=== PATIENT | female | born 1950 | race Caucasian/White ===

== ENCOUNTER → 2017-05-27 | Outpatient (CLI) | payer OTHER ==
[~2017-05-27] MED LIST: ESTR0.753 PO; HYDR-2443 PO; METO25TA35 PO; OMEP1CAP14 PO; ONDA4TAB13 SL
== END | disposition home or self-care (01) ==
LOC: CFH 07:25
PROVIDERS: ATTEND Internal Medicine
DX: Z12.31 Encounter for screening mammogram for malignant neoplasm of breast (principal); M85.88 Other specified disorders of bone density and structure, other site
CPT/HCPCS: 77080; 77067

== ENCOUNTER → 2018-08-30 | Outpatient (CLI) | payer OTHER | END | disposition home or self-care (01) | LOC: CFH 12:02 | PROVIDERS: ATTEND Internal Medicine | DX: N63.41 Unspecified lump in right breast, subareolar (principal) | CPT/HCPCS: 76641; 77066; G0279 ==

== ENCOUNTER → 2019-02-03 | Outpatient (CLI) | payer OTHER, MEDICARE ==
[~2019-02-03] MED LIST changes: +ASCO10004 PO; +BIOT5TAB PO; +CHOL20002 PO; +MAGN400T36 PO; +OMNIPAQUE 350 MG/ML, 100ML BOTTLE ONE; +TRAZ50TA66 PO; +VITA200C7 PO
== END | disposition home or self-care (01) ==
LOC: CFH 14:26
PROVIDERS: ATTEND Internal Medicine Cardiovascular Disease
DX: I25.10 Atherosclerotic heart disease of native coronary artery without angina pectoris (principal); I70.90 Unspecified atherosclerosis; K44.9 Diaphragmatic hernia without obstruction or gangrene; R07.9 Chest pain, unspecified; F10.20 Alcohol dependence, uncomplicated; Z87.891 Personal history of nicotine dependence
CPT/HCPCS: 75574; Q9967

== ENCOUNTER 2019-02-17 07:22 | Outpatient (CLI) | payer MEDICARE, OTHER ==
[~2019-02-17 07:22] MED LIST changes: -OMNIPAQUE 350 MG/ML, 100ML BOTTLE ONE
[2019-02-17 08:33] LABS: BASOPHILS # (AUTO) 0.02 x10^3/uL (0-0.1); BASOPHILS % (AUTO) 1 % (0-1); EOSINOPHILS # (AUTO) 0.04 x10^3/uL (0-0.4); EOSINOPHILS % (AUTO) 1 % (1-7); LYMPHOCYTES # (AUTO) 1.18 x10^3/uL (1-3.4); LYMPHOCYTES % (AUTO) 32 % (22-44); MD NO; MEAN CORPUSCULAR HEMOGLOBIN 28.1 pg (27.0-34.8); MEAN CORPUSCULAR HGB CONC 32.4 g/dL (32.4-35.8); MEAN CORPUSCULAR VOLUME 86.7 fL (80-100); MONOCYTES # (AUTO) 0.32 x10^3/uL (0.2-0.8); MONOCYTES % (AUTO) 9 % (2-9); NEUTROPHILS # (AUTO) 2.14 x10^3/uL (1.8-6.8); NEUTROPHILS % (AUTO) 58 % (42-75); PLATELET COUNT 216 x10^3/uL (130-400); RED BLOOD COUNT 4.71 x10^6/uL (3.82-5.3); RED CELL DISTRIBUTION WIDTH 15.7 % (9.6-15.2)
[2019-02-17] MEDS ORDERED: METO25TA91 PO (08:36)
[2019-02-17] MEDS ORDERED: ASPI81TA45 PO (08:36)
[2019-02-17] MEDS ORDERED: MULT-516 PO (08:36)
[2019-02-17] MEDS ORDERED: ESTRADIOL VG (08:36)
[2019-02-17] MEDS ORDERED: ATOR40TA78 PO (08:36)
[2019-02-17] MEDS ORDERED: TRAZ50TA66 PO (08:36)
[2019-02-17] MEDS ORDERED: BIOT1TAB2 PO (08:36)
[2019-02-17] MEDS ORDERED: NITR0.4T28 SL (08:36)
[2019-02-17] MEDS ORDERED: MAGN400T36 PO (08:36)
[2019-02-17] MEDS ORDERED: CHOL500015 PO (08:36)
[2019-02-17] MEDS ORDERED: VITA100C8 PO (08:36)
[2019-02-17 08:43] LABS: ANION GAP 4 mmol/L (5-15); CALCIUM 9.3 mg/dL (8.5-10.1); CHLORIDE 110 mmol/L (98-107); CREATININE 0.87 mg/dL (0.55-1.02)
== END 2019-02-17 23:59 | disposition home or self-care (01) ==
LOC: STAR 07:22
PROVIDERS: ATTEND Internal Medicine Cardiovascular Disease
DX: Z01.810 Encounter for preprocedural cardiovascular examination (principal); I20.0 Unstable angina; R00.0 Tachycardia, unspecified; E78.00 Pure hypercholesterolemia, unspecified
CPT/HCPCS: 36415; 80048; 85025

== ENCOUNTER 2019-02-21 08:22 | Day surgery (SDC) | payer MEDICARE, OTHER ==
[2019-02-17 08:09] VITALS: BP 95/69
[~2019-02-21] VITALS: Ht 162.6 cm; Wt 65.5 kg
[~2019-02-21 08:22] MED LIST changes: +ASPI81TA45 PO; +ATOR40TA78 PO; +BIOT1TAB2 PO; +CHOL500015 PO; +ESTRADIOL VG; +METO25TA91 PO; +MULT-516 PO; +NITR0.4T28 SL; +VITA100C8 PO
[2019-02-21] MEDS ORDERED: SODIUM CHLORIDE 0.9% 1,000 ML IV SCH ×2 (08:48→12:35)
[2019-02-21] MEDS ORDERED: ASPIRIN 325 MG TABLET EC PO ONE (09:00)
[2019-02-21] MEDS ORDERED: ASPIRIN 325 MG TABLET EC ONE (09:13)
[2019-02-21] MEDS ORDERED: FENTANYL PF 100 MCG/2ML ONE (10:39)
[2019-02-21] MEDS ORDERED: MIDAZOLAM 1 MG/ML, 5ML ONE (10:39)
[2019-02-21] MEDS ORDERED: LIDOCAINE 2%, 20ML ONE (10:39)
[2019-02-21] MEDS ORDERED: VERAPAMIL 2.5 MG/ML, 2ML ONE (11:46)
[2019-02-21] MEDS ORDERED: HEPARIN 1,000 UNITS/ML, 10ML ONE (11:46)
[2019-02-21] MEDS ORDERED: BIVALIRUDIN 250 MG ONE (12:10)
== END 2019-02-21 14:25 | disposition home or self-care (01) ==
LOC: CACL 08:22
PROVIDERS: ATTEND Internal Medicine Cardiovascular Disease
DX: R94.39 Abnormal result of other cardiovascular function study (principal); I25.110 Atherosclerotic heart disease of native coronary artery with unstable angina pectoris; I25.83 Coronary atherosclerosis due to lipid rich plaque; I10 Essential (primary) hypertension; E78.00 Pure hypercholesterolemia, unspecified; Z79.82 Long term (current) use of aspirin; Z79.899 Other long term (current) drug therapy; Z86.73 Personal history of transient ischemic attack (TIA), and cerebral infarction without residual deficits; Z87.891 Personal history of nicotine dependence; Z98.84 Bariatric surgery status
CPT/HCPCS: 93458; 99156; C1769; C1894; J1644; J2250; J3010; J7030; Q9967; J0583

== ENCOUNTER 2019-09-20 08:09 | Day surgery (SDC) | payer OTHER ==
[~2019-09-20] VITALS: Ht 162.6 cm; Wt 72.6 kg
[~2019-09-20 08:09] MED LIST changes: +BIOT25005 PO; +CHOL10003 PO; +EPHEDRINE 50 MG/ML, 1ML IVPush PRN; +HYDROmorphone 1 MG/ML, 1ML INJ IVPush PRN; +LABETALOL 5MG/ML, 20ML IV PRN; +MAGN100T6 PO; +MEPERIDINE/PF 25MG/0.5ML IVPush PRN; +ONDANSETRON 2MG/ML, 2ML IVPush PRN; +OXYcodone 5 MG/5 ML ORAL.SOL UDC PO PRN; +PHYT100T PO; +POTA99TA14 PO; +PROMETHAZINE 25 MG/ML, 1ML IVPush PRN; +hydrALAzine 20 MG/ML, 1ML IV PRN
[2019-09-20 09:18] VITALS: BP 108/73
[2019-09-20] MEDS ORDERED: LACTATED RINGERS 1,000 ML IV SCH (09:18)
[2019-09-20] MEDS ORDERED: CHLORHEXIDINE 15 ML UDC MM ONE (09:30)
[2019-09-20] MEDS ORDERED: GABAPENTIN 300 MG CAPSULE PO ONE (09:30)
[2019-09-20] MEDS ORDERED: ACETAMINOPHEN 500 MG TABLET PO ONE (09:30)
[2019-09-20] MEDS ORDERED: LIDOCAINE PF 2%, 5ML ONE (10:54)
[2019-09-20] MEDS ORDERED: PROPOFOL 10 MG/ML, 20ML ONE (10:54)
[2019-09-20] MEDS ORDERED: ONDANSETRON 2MG/ML, 2ML ONE ×2 (10:54)
[2019-09-20] MEDS ORDERED: DEXAMETHASONE 4 MG/ML, 1ML ONE (10:54)
[2019-09-20] MEDS ORDERED: KETOROLAC 30 MG/1 ML ONE (10:54)
[2019-09-20] MEDS ORDERED: CEFAZOLIN 1,000 MG ONE (10:54)
[2019-09-20] MEDS ORDERED: LIDOCAINE 1%-EPI 1:100K, 30ML INFIL ONE (11:15)
[2019-09-20] MEDS ORDERED: ROPIvacaine/PF 0.5%, 30 ML INFIL ONE (11:16)
[2019-09-20] MEDS ORDERED: FENTANYL PF 100 MCG/2ML ONE (11:53)
[2019-09-20] MEDS: FENTANYL PF 100 MCG/2ML IV PRN ×3 (12:00→12:23)
[2019-09-20] MEDS ORDERED: OXYcodone 5 MG/5 ML ORAL.SOL UDC ONE (12:28)
== END 2019-09-20 14:25 | disposition home or self-care (01) ==
LOC: OUT 08:09
PROVIDERS: ATTEND Orthopaedic Surgery
DX: M23.262 Derangement of other lateral meniscus due to old tear or injury, left knee (principal); Z11.59 Encounter for screening for other viral diseases; M23.232 Derangement of other medial meniscus due to old tear or injury, left knee; M94.262 Chondromalacia, left knee; M11.262 Other chondrocalcinosis, left knee; I25.10 Atherosclerotic heart disease of native coronary artery without angina pectoris; I10 Essential (primary) hypertension; E78.5 Hyperlipidemia, unspecified; Z88.8 Allergy status to other drugs, medicaments and biological substances; Z79.899 Other long term (current) drug therapy; Z72.89 Other problems related to lifestyle; Z79.82 Long term (current) use of aspirin; Z87.891 Personal history of nicotine dependence; Z90.710 Acquired absence of both cervix and uterus; Z98.890 Other specified postprocedural states; Z86.73 Personal history of transient ischemic attack (TIA), and cerebral infarction without residual deficits; Z82.49 Family history of ischemic heart disease and other diseases of the circulatory system; Z83.3 Family history of diabetes mellitus
CPT/HCPCS: 29880; 36415; 87635; 93005; J0690; J1100; J1885; J2250; J2405; J2704; J2795; J3010; J3490; J7120

== ENCOUNTER → 2019-10-02 | Outpatient (CLI) | payer OTHER ==
[~2019-10-02] MED LIST changes: -EPHEDRINE 50 MG/ML, 1ML IVPush PRN; -HYDROmorphone 1 MG/ML, 1ML INJ IVPush PRN; -LABETALOL 5MG/ML, 20ML IV PRN; -MEPERIDINE/PF 25MG/0.5ML IVPush PRN; -ONDANSETRON 2MG/ML, 2ML IVPush PRN; -OXYcodone 5 MG/5 ML ORAL.SOL UDC PO PRN; -PROMETHAZINE 25 MG/ML, 1ML IVPush PRN; -hydrALAzine 20 MG/ML, 1ML IV PRN
== END | disposition home or self-care (01) ==
LOC: CFH 10:43
PROVIDERS: ATTEND Internal Medicine
DX: Z12.31 Encounter for screening mammogram for malignant neoplasm of breast (principal)
CPT/HCPCS: 77067

== ENCOUNTER → 2020-09-13 | Outpatient (CLI) | payer OTHER ==
[~2020-09-13] MED LIST changes: +ASCO100018 PO; -ASCO10004 PO; -HYDR-2443 PO; +HYDR-3567 PO; -POTA99TA14 PO; +POTA99TA19 PO; +VITA100C10 PO; -VITA100C8 PO
== END | disposition home or self-care (01) ==
LOC: CFH 11:03
PROVIDERS: ATTEND Internal Medicine
DX: Z13.820 Encounter for screening for osteoporosis (principal); M89.9 Disorder of bone, unspecified; N95.9 Unspecified menopausal and perimenopausal disorder; M81.0 Age-related osteoporosis without current pathological fracture
CPT/HCPCS: 77080